=== PATIENT | male | born 1950 | race Caucasian/White ===

== ENCOUNTER 2018-12-04 15:17 | Outpatient (CLI) | payer MEDICARE | END 2018-12-04 23:59 | disposition home or self-care (01) | LOC: CFH 15:17 | PROVIDERS: ATTEND Internal Medicine | DX: J84.10 Pulmonary fibrosis, unspecified (principal) | CPT/HCPCS: 71250 ==

== ENCOUNTER → 2019-11-08 | Outpatient (CLI) | payer MEDICARE | END | disposition home or self-care (01) | LOC: CFH 10:33 | PROVIDERS: ATTEND Internal Medicine | DX: R94.2 Abnormal results of pulmonary function studies (principal) | CPT/HCPCS: 71250 ==